=== PATIENT | female | born 1950 | race Caucasian/White ===

== ENCOUNTER → 2020-07-15 | Outpatient (CLI) | payer MEDICARE ==
[~2020-07-15] MED LIST: ADVIL200 M1 PO; ASPIRIN81 M1 PO; CO Q10100 MG PO; ESTRACE0.5 MG PO; FLAX OIL1000 MG PO; MASON NATURAL1200 MG PO; MULTI VITAMINS1 TAB PO
== END | disposition home or self-care (01) ==
LOC: COVID19 11:11
PROVIDERS: ATTEND Internal Medicine
DX: Z20.828 Contact with and (suspected) exposure to other viral communicable diseases (principal)